=== PATIENT | female | born 1940 | race Caucasian/White ===

== ENCOUNTER → 2023-04-28 | Outpatient (REF) | payer OTHER, SELFPAY | LOC: DHSLP | PROVIDERS: ATTENDING PHYSICIAN Internal Medicine Cardiovascular Disease; FAMILY PHYSICIAN Family Medicine | DX: G47.33 Obstructive sleep apnea (adult) (pediatric) (principal) | CPT/HCPCS: 95800 ==

== ENCOUNTER → 2023-05-01 09:59 | Outpatient (REF) | payer OTHER, SELFPAY ==
[2023-05-01 12:09] LABS: Blood Urea Nitrogen 12 mg/dl (7-17); Calcium 9.8 mg/dl (8.4-10.2); Carbon Dioxide 32 mmol/L (22-30); Chloride 101 mmol/L (98-107); Glucose 76 mg/dl (70-99); Potassium 3.8 mmol/L (3.5-5.1); Sodium 137 mmol/L (135-145); eGFR > 60.00
== END ==
LOC: REG 09:59
PROVIDERS: ATTENDING PHYSICIAN Family Medicine
DX: E87.6 Hypokalemia (principal)
CPT/HCPCS: 36415; 80048

== ENCOUNTER → 2023-07-15 10:33 | Outpatient (REF) | payer OTHER, SELFPAY ==
[2023-07-15 11:30] LABS: % Basophils 0.2 % (0-2); % Eosinophils 2.4 % (0-6); % Immature Granulocytes 0.4 % (0-0.5); % Lymphocytes 33.6 % (20.5-51.1); % Monocytes 5.3 % (1.7-9.3); % Neutrophils 58.1 % (42.2-75.2); Absolute Eosinophils 0.1 10^3/uL (0-0.7); Absolute Lymphocytes 1.8 10^3/uL (1.2-3.4); Absolute Monocytes 0.3 10^3/uL (0.1-0.6); Absolute Neutrophils 3.2 10^3/uL (1.4-6.5); Hematocrit 38.3 % (37.0-47.0); Hemoglobin 12.9 g/dL (12.0-16.0); Mean Corp Hgb Conc. 33.7 g/dL (33.0-37.0); Mean Corpuscular Hgb 28.4 pg (27.0-31.0); Mean Corpuscular Volume 84.2 fL (81.0-99.0); Mean Platelet Volume 10.4 fL (7.4-10.4); Nucleated Red Blood Cells % 0 %; Platelet Count 210 10^3/uL (130-400); Red Blood Cell Count 4.55 10^6/uL (4.20-5.40); Red Cell Dist. Width 13.7 % (11.5-14.5); White Blood Cell Count 5.5 10^3/uL (4.8-10.8)
[2023-07-15 12:06] LABS: ALT (SGPT) 19 U/L (0-35); AST (SGOT) 27 U/L (14-36); Albumin 3.9 g/dl (3.5-5.0); Alkaline Phosphatase 84 U/L (38-126); Blood Urea Nitrogen 14 mg/dl (7-17); Calcium 9.7 mg/dl (8.4-10.2); Carbon Dioxide 31 mmol/L (22-30); Chloride 103 mmol/L (98-107); Glucose 75 mg/dl (70-99); HDL Cholesterol 81 mg/dl; Iron 103 ug/dl (37-170); LDL Cholesterol, Calculated 55 mg/dl; Potassium 2.9 mmol/L (3.5-5.1); Sodium 138 mmol/L (135-145); Total Bilirubin 0.5 mg/dl (0.2-1.3); Total Cholesterol 156 mg/dl (50-199); Total Protein 6.2 g/dl (6.3-8.2); Triglyceride 104 mg/dl (10-149); Very Low Density Lipoprotein 20 mg/dl (0-30); eGFR > 60.00
[2023-07-15 12:32] LABS: TSH 1.05 uIU/ml (0.47-4.68)
[2023-07-15 12:37] LABS: Ferritin 40.5 ng/ml (11.1-264.0)
== END ==
LOC: REG 10:33
PROVIDERS: ATTENDING PHYSICIAN Family Medicine
DX: E78.00 Pure hypercholesterolemia, unspecified (principal); D64.9 Anemia, unspecified; Z79.899 Other long term (current) drug therapy; E03.9 Hypothyroidism, unspecified
CPT/HCPCS: 36415; 80053; 80061; 82728; 83540; 84443; 85025

== ENCOUNTER → 2023-07-18 13:08 | Outpatient (REF) | payer OTHER, SELFPAY ==
[2023-07-18 13:47] LABS: Blood Urea Nitrogen 14 mg/dl (7-17); Calcium 9.8 mg/dl (8.4-10.2); Carbon Dioxide 29 mmol/L (22-30); Chloride 105 mmol/L (98-107); Glucose 79 mg/dl (70-99); Potassium 4.2 mmol/L (3.5-5.1); Sodium 139 mmol/L (135-145); eGFR > 60.00
== END ==
LOC: OLAB 13:08
PROVIDERS: ATTENDING PHYSICIAN Family Medicine
DX: E87.6 Hypokalemia (principal)
CPT/HCPCS: 80048

== ENCOUNTER → 2023-07-30 09:36 | Outpatient (REF) | payer OTHER, SELFPAY ==
[2023-07-30 10:27] LABS: % Basophils 0.4 % (0-2); % Eosinophils 3.7 % (0-6); % Immature Granulocytes 0.2 % (0-0.5); % Lymphocytes 38.8 % (20.5-51.1); % Monocytes 6.7 % (1.7-9.3); % Neutrophils 50.2 % (42.2-75.2); Absolute Eosinophils 0.2 10^3/uL (0-0.7); Absolute Lymphocytes 2.1 10^3/uL (1.2-3.4); Absolute Monocytes 0.4 10^3/uL (0.1-0.6); Absolute Neutrophils 2.7 10^3/uL (1.4-6.5); Hematocrit 40.9 % (37.0-47.0); Hemoglobin 13.7 g/dL (12.0-16.0); Mean Corp Hgb Conc. 33.5 g/dL (33.0-37.0); Mean Corpuscular Hgb 28.4 pg (27.0-31.0); Mean Corpuscular Volume 84.7 fL (81.0-99.0); Mean Platelet Volume 10.1 fL (7.4-10.4); Nucleated Red Blood Cells % 0 %; Platelet Count 230 10^3/uL (130-400); Red Blood Cell Count 4.83 10^6/uL (4.20-5.40); Red Cell Dist. Width 13.5 % (11.5-14.5); White Blood Cell Count 5.4 10^3/uL (4.8-10.8)
[2023-07-30 11:04] LABS: ALT (SGPT) 19 U/L (0-35); AST (SGOT) 31 U/L (14-36); Albumin 4.1 g/dl (3.5-5.0); Alkaline Phosphatase 97 U/L (38-126); Blood Urea Nitrogen 16 mg/dl (7-17); Calcium 9.8 mg/dl (8.4-10.2); Carbon Dioxide 29 mmol/L (22-30); Chloride 103 mmol/L (98-107); Glucose 87 mg/dl (70-99); HDL Cholesterol 79 mg/dl; Iron 111 ug/dl (37-170); LDL Cholesterol, Calculated 58 mg/dl; Potassium 4.1 mmol/L (3.5-5.1); Sodium 138 mmol/L (135-145); Total Bilirubin 0.4 mg/dl (0.2-1.3); Total Cholesterol 160 mg/dl (50-199); Total Protein 6.4 g/dl (6.3-8.2); Triglyceride 119 mg/dl (10-149); Very Low Density Lipoprotein 23 mg/dl (0-30); eGFR > 60.00
[2023-07-30 11:32] LABS: TSH 0.73 uIU/ml (0.47-4.68)
[2023-07-30 11:37] LABS: Ferritin 47.9 ng/ml (11.1-264.0)
== END ==
LOC: REG 09:36
PROVIDERS: ATTENDING PHYSICIAN Family Medicine
DX: E78.00 Pure hypercholesterolemia, unspecified (principal); D64.9 Anemia, unspecified; Z79.899 Other long term (current) drug therapy; E03.9 Hypothyroidism, unspecified
CPT/HCPCS: 36415; 80053; 80061; 82728; 83540; 84443; 85025

== ENCOUNTER → 2023-08-03 17:54 | Outpatient (REF) | payer OTHER, SELFPAY | LOC: RAD 17:54 | PROVIDERS: ATTENDING PHYSICIAN Nurse Practitioner Adult Health | DX: R07.89 Other chest pain (principal) | CPT/HCPCS: 71046 ==

== ENCOUNTER → 2023-10-08 12:38 | Outpatient (REF) | payer OTHER, SELFPAY | LOC: HWWDC 12:38 | PROVIDERS: ATTENDING PHYSICIAN Obstetrics & Gynecology; FAMILY PHYSICIAN Family Medicine | DX: Z12.31 Encounter for screening mammogram for malignant neoplasm of breast (principal) | CPT/HCPCS: 77063; 77067 ==

== ENCOUNTER → 2023-11-18 17:34 | Outpatient (REF) | payer OTHER, SELFPAY ==
[2023-11-18 17:58] LABS: Urine Albumin Negative (Neg - Trace); Urine Bilirubin Negative (Negative); Urine Character Clear (Clear); Urine Color Yellow; Urine Glucose Negative (Negative); Urine Ketone Negative (Negative); Urine Leukocyte Negative (Negative); Urine Nitrite Negative (Negative); Urine Occult Blood Negative (Negative); Urine Specific Gravity 1.015 (<1.030); Urine Urobilinogen Negative (Neg - 1+)
== END ==
LOC: CLAB 17:34
PROVIDERS: ATTENDING PHYSICIAN Obstetrics & Gynecology
DX: N39.0 Urinary tract infection, site not specified (principal)
CPT/HCPCS: 81003; 87077; 87086; 87186

== ENCOUNTER 2024-02-01 06:04 | Day surgery (SDC) | payer OTHER, SELFPAY ==
[2024-01-22 11:22] LABS: Hematocrit 39.1 % (37.0-47.0); Mean Corp Hgb Conc. 33.2 g/dL (33.0-37.0); Mean Corpuscular Hgb 28.3 pg (27.0-31.0); Mean Corpuscular Volume 85.2 fL (81.0-99.0); Mean Platelet Volume 10.1 fL (7.4-10.4); Platelet Count 213 10^3/uL (130-400); Red Blood Cell Count 4.59 10^6/uL (4.20-5.40); White Blood Cell Count 5.7 10^3/uL (4.8-10.8)
[2024-01-22 11:55] LABS: Blood Urea Nitrogen 18 mg/dl (7-17); Calcium 9.7 mg/dl (8.4-10.2); Carbon Dioxide 30 mmol/L (22-30); Chloride 101 mmol/L (98-107); Glucose 92 mg/dl (70-99); Sodium 141 mmol/L (135-145); eGFR 49.24
[2024-01-22 12:50] VITALS: BMI 31.3
--- NOTE | 2024-01-25 10:45 | PTCARENOTE ---
Patients 01/21 GFR 49.24- Eleni @ Dr. Mckeon notified
[2024-02-01] VITALS (9 sets, daily range): BP systolic 80–129; BP diastolic 44–78; BMI 31.3
[2024-02-01] MEDS: Pyridium 200 MG PO (06:40)
--- NOTE | 2024-02-01 09:46 | SUR.PHASEI ---
0930 -vss, comfortable, NSR with pvc's, sats 90-95% on room air - Dr Espinoza updated - okay for discharge - patient instructed to use CPAP with any rest periods today. Patient understands. Wade emptied for orange urine, and then backfilled with
300cc NSS using sterile technique, balloon deflated and wade d/'cd without difficulty. Discharge to [facility]
[2024-02-01] MEDS: BENADRYL 25 MG IV (10:16)
== END 2024-02-01 11:07 | disposition home or self-care (01) ==
LOC: SDS 06:04
PROVIDERS: ATTENDING PHYSICIAN Obstetrics & Gynecology; FAMILY PHYSICIAN Family Medicine; OTHER PHYSICIAN Internal Medicine Cardiovascular Disease
PROC: 0TSD0ZZ Reposition Urethra, Open Approach (ICD-10-PCS; 2024-02-01)
DX: N39.46 Mixed incontinence (principal)
CPT/HCPCS: 57288; 36415; 80048; 85027; 86850; 86900; 86901; 87070; C1771

== ENCOUNTER → 2024-02-29 08:50 | Outpatient (REF) | payer OTHER, SELFPAY ==
[2024-02-29 10:05] LABS: % Basophils 0.2 % (0-2); % Immature Granulocytes 0.2 % (0-0.5); % Monocytes 7.9 % (1.7-9.3); % Neutrophils 46.7 % (42.2-75.2); Absolute Eosinophils 0.3 10^3/uL (0-0.7); Absolute Lymphocytes 1.7 10^3/uL (1.2-3.4); Absolute Monocytes 0.3 10^3/uL (0.1-0.6); Hematocrit 40.2 % (37.0-47.0); Hemoglobin 13.1 g/dL (12.0-16.0); Mean Corp Hgb Conc. 32.6 g/dL (33.0-37.0); Mean Corpuscular Hgb 27.9 pg (27.0-31.0); Mean Corpuscular Volume 85.5 fL (81.0-99.0); Mean Platelet Volume 10.9 fL (7.4-10.4); Nucleated Red Blood Cells % 0 %; Platelet Count 222 10^3/uL (130-400); White Blood Cell Count 4.3 10^3/uL (4.8-10.8)
[2024-02-29 10:42] LABS: ALT (SGPT) 18 U/L (0-35); AST (SGOT) 28 U/L (14-36); Alkaline Phosphatase 116 U/L (38-126); Blood Urea Nitrogen 20 mg/dl (7-17); Calcium 9.5 mg/dl (8.4-10.2); Carbon Dioxide 30 mmol/L (22-30); Chloride 103 mmol/L (98-107); Glucose 92 mg/dl (70-99); HDL Cholesterol 78 mg/dl; LDL Cholesterol, Calculated 59 mg/dl; Potassium 3.9 mmol/L (3.5-5.1); Sodium 140 mmol/L (135-145); Total Bilirubin 0.3 mg/dl (0.2-1.3); Total Cholesterol 168 mg/dl (50-199); Total Protein 6.1 g/dl (6.3-8.2); Triglyceride 156 mg/dl (10-149); Very Low Density Lipoprotein 31 mg/dl (0-30); eGFR 55.21
[2024-02-29 10:59] LABS: TSH 1.15 uIU/ml (0.47-4.68)
== END ==
LOC: REG 08:50
PROVIDERS: ATTENDING PHYSICIAN Family Medicine
DX: E78.00 Pure hypercholesterolemia, unspecified (principal)
CPT/HCPCS: 36415; 80053; 80061; 84443; 85025

== ENCOUNTER → 2024-03-14 08:41 | Outpatient (REF) | payer OTHER, SELFPAY ==
[2024-03-14 09:56] LABS: Blood Urea Nitrogen 16 mg/dl (7-17); Carbon Dioxide 34 mmol/L (22-30); Chloride 99 mmol/L (98-107); Glucose 93 mg/dl (70-99); Potassium 4.3 mmol/L (3.5-5.1); Sodium 137 mmol/L (135-145); eGFR 55.21
== END ==
LOC: REG 08:41
PROVIDERS: ATTENDING PHYSICIAN Family Medicine
DX: I50.32 Chronic diastolic (congestive) heart failure (principal)
CPT/HCPCS: 36415; 80048

== ENCOUNTER → 2024-06-07 10:42 | Outpatient (REF) | payer OTHER, SELFPAY | LOC: RAD 10:42 | PROVIDERS: ATTENDING PHYSICIAN Nurse Practitioner Adult Health; FAMILY PHYSICIAN Family Medicine | DX: M79.644 Pain in right finger(s) (principal) | CPT/HCPCS: 73140 ==

== ENCOUNTER → 2024-10-10 09:19 | Outpatient (REF) | payer OTHER, SELFPAY | LOC: HWWDC 09:19 | PROVIDERS: ATTENDING PHYSICIAN Obstetrics & Gynecology; FAMILY PHYSICIAN Family Medicine | DX: Z12.31 Encounter for screening mammogram for malignant neoplasm of breast (principal) | CPT/HCPCS: 77063; 77067 ==

== ENCOUNTER → 2024-11-08 07:24 | Outpatient (REF) | payer OTHER, SELFPAY ==
[2024-11-08 08:39] LABS: Hematocrit 41.8 % (37.0-47.0); Hemoglobin 13.6 g/dL (12.0-16.0); Mean Corp Hgb Conc. 32.5 g/dL (33.0-37.0); Mean Corpuscular Volume 87.4 fL (81.0-99.0); Nucleated Red Blood Cells % 0 %; Platelet Count 213 10^3/uL (130-400); Red Cell Dist. Width 12.7 % (11.5-14.5)
[2024-11-08 09:23] LABS: ALT (SGPT) 21 U/L (0-35); AST (SGOT) 26 U/L (14-36); Albumin 4.1 g/dl (3.5-5.0); Alkaline Phosphatase 87 U/L (38-126); Blood Urea Nitrogen 14 mg/dl (7-17); Calcium 9.7 mg/dl (8.4-10.2); Carbon Dioxide 31 mmol/L (22-30); Chloride 104 mmol/L (98-107); Glucose 91 mg/dl (70-99); HDL Cholesterol 60 mg/dl; LDL Cholesterol, Calculated 68 mg/dl; Potassium 4.5 mmol/L (3.5-5.1); Sodium 140 mmol/L (135-145); Total Protein 6.1 g/dl (6.3-8.2); Very Low Density Lipoprotein 25 mg/dl (0-30); eGFR 48.94
== END ==
LOC: REG 07:24
PROVIDERS: ATTENDING PHYSICIAN Family Medicine
DX: K21.00 Gastro-esophageal reflux disease with esophagitis, without bleeding (principal); E78.00 Pure hypercholesterolemia, unspecified
CPT/HCPCS: 36415; 80053; 80061; 85025

== ENCOUNTER → 2025-01-26 09:59 | Outpatient (REF) | payer OTHER, SELFPAY | LOC: PAVMRI 09:59 | PROVIDERS: FAMILY PHYSICIAN Family Medicine | DX: H90.A22 Sensorineural hearing loss, unilateral, left ear, with restricted hearing on the contralateral side (principal) | CPT/HCPCS: 70553; A9575 ==

== ENCOUNTER → 2025-01-31 12:35 | Outpatient (REF) | payer OTHER, SELFPAY ==
[2025-01-31 14:05] LABS: Urine Character Slightly Cloudy (Clear)
[2025-01-31 14:39] LABS: Urine White Cell 40-50 /HPF (0-5)
== END ==
LOC: REG 12:35
PROVIDERS: ATTENDING PHYSICIAN Obstetrics & Gynecology; FAMILY PHYSICIAN Family Medicine
DX: N39.0 Urinary tract infection, site not specified (principal)
CPT/HCPCS: 81003; 81015; 87077; 87086; 87186

== ENCOUNTER → 2025-03-06 07:54 | Outpatient (REF) | payer OTHER, SELFPAY ==
[2025-03-06 09:18] LABS: Hematocrit 37.4 % (37.0-47.0); Hemoglobin 12.4 g/dL (12.0-16.0); Mean Corp Hgb Conc. 33.2 g/dL (33.0-37.0); Mean Corpuscular Volume 87.4 fL (81.0-99.0); Nucleated Red Blood Cells % 0 %; Platelet Count 232 10^3/uL (130-400); Red Cell Dist. Width 12.7 % (11.5-14.5)
[2025-03-06 09:57] LABS: Blood Urea Nitrogen 12 mg/dl (7-17); Calcium 9.4 mg/dl (8.4-10.2); Carbon Dioxide 31 mmol/L (22-30); Chloride 103 mmol/L (98-107); Glucose 83 mg/dl (70-99); Potassium 4.2 mmol/L (3.5-5.1); Sodium 137 mmol/L (135-145); eGFR > 60.00
[2025-03-06 10:21] LABS: TSH 1.07 uIU/ml (0.47-4.68)
== END ==
LOC: REG 07:54
PROVIDERS: ATTENDING PHYSICIAN Family Medicine
DX: I10 Essential (primary) hypertension (principal); Z86.2 Personal history of diseases of the blood and blood-forming organs and certain disorders involving the immune mechanism; E03.9 Hypothyroidism, unspecified
CPT/HCPCS: 36415; 80048; 84443; 85025

== ENCOUNTER → 2025-03-15 07:57 | Outpatient (REF) | payer OTHER, SELFPAY | LOC: HWRAD 07:57 | PROVIDERS: FAMILY PHYSICIAN Family Medicine | DX: J32.4 Chronic pansinusitis (principal) | CPT/HCPCS: 70486 ==